=== PATIENT | male | born 1950 | race Caucasian/White ===

== ENCOUNTER 2017-04-08 14:05 | Emergency (ER) | payer MEDICARE, OTHER ==
--- NOTE | 2017-04-08 15:01 | ED Physician Documentation ---
History of Present Illness - Stated complaint Stated Complaint: DIZZY - Chief complaint Chief Complaint: Neuro - History obtained from History obtained from: Patient, Family - History of Present Illness Timing: How many days ago (3) - Additonal information Additional information: 67-year-old male with a remote history of severe traumatic brain injury has a slight limp with left-sided weakness at baseline and 3 days ago this limp became more pronounced. He also feels that he is having some spaciness. He reports that before he went on a trip to [place] to play golf with his friends that he had been very busy at home mowing the lawn and cleaning up and then he went to play golf he played 4 rounds of golf in [place] with his friends he did not do much in the way of drinking alcohol but he did drink lots of fluids. 3 days ago on the return home he got caught in traffic and was quite stressed about catching his plane and when he got home he noted the limping was worse. His noted this as well. He has had some headache and he has had no difficulty with his speech but he has had some difficulty with short-term memory and feeling "spacey " Review of Systems Constitutional: denies: Fever, Chills, Myalgias, Fatigue Eyes: denies: Decreased vision Ears: denies: Ear pain Nose: denies: Rhinorrhea / runny nose, Congestion Throat: denies: Sore throat Cardiac: denies: Chest pain / pressure, Palpitations Respiratory: denies: Dyspnea, Cough GI: reports: Constipation. denies: Abdominal Pain, Nausea, Vomiting, Diarrhea : denies: Dysuria, Frequency Skin: denies: Rash Musculoskeletal: denies: Neck pain, Back pain, Extremity pain Neurologic: reports: Focal weakness (left leg), Headache. denies: Generalized weakness, Numbness, Difficulty speaking, Head injury, LOC PD PAST MEDICAL HISTORY - Present Medications Home Medications: Ambulatory Orders Medication Instructions Recorded Confirmed Aspirin 04/08/17 Tamsulosin [Flomax] 04/08/17 - Allergies Allergies/Adverse Reactions: Allergies Allergy/AdvReac Type Severity Reaction Status Date / Time No Known Drug Allergies Allergy Verified 04/08/17 14:21 PD ED PE NORMAL - Vitals Vital signs reviewed: Yes (hypertension) - General General: Alert and oriented X 3, No acute distress, Well developed/nourished - HEENT HEENT: Atraumatic, PERRL, EOMI - Neck Neck: Supple, no meningeal sign, No bony TTP, No bruit - Cardiac Cardiac: RRR, No murmur - Respiratory Respiratory: No respiratory distress, Clear bilaterally - Abdomen Abdomen: Soft, Non tender - Back Back: No CVA TTP, No spinal TTP - Derm Derm: Normal color, No rash - Extremities Extremities: No deformity, No edema - Neuro Neuro: Alert and oriented X 3, anode worker 2-12 intact, No motor deficit, No sensory deficit, Normal speech - Psych Psych: Normal mood, Normal affect Results - Vitals Vitals: Vital Signs - 24 hr 04/08/17 04/08/17 04/08/17 14:09 16:11 16:44 Temperature 37.0 C Heart Rate 80 69 76 Respiratory 18 20 19 Rate Blood Pressure 162/104 H 122/57 L 145/85 H O2 Saturation 96 98 97 04/08/17 17:27 Temperature Heart Rate 62 Respiratory 18 Rate Blood Pressure 135/87 H O2 Saturation 97 Oxygen O2 Source Room air - EKG (time done) 1457 Rate: Rate (enter#) (76) Rhythm: NSR [place]: LAD Ischemia: Normal ST segments Other comments: Other comments (early transition) Computer interpretation: Agree with computer - Labs Labs: Laboratory Tests 04/08/17 04/08/17 04/08/17 14:30 14:30 14:30 WBC 9.5 RBC 4.88 Hgb 14.6 Hct 44.0 MCV 90.3 MCH 30.0 MCHC 33.3 RDW 14.3 Plt Count 251 MPV 10.2 Neut # 7.3 H Lymph # 1.3 L Brantley # 0.9 Eos # 0.1 Baso # 0.0 Absolute Nucleated RBC 0.00 Nucleated RBCs 0.0 Manual Slide Review Indicated WBC Morphology NORMAL APPEARANCE Platelet Estimate NORMAL (130-450,000) Platelet Morphology 1+ GIANT PLATELETS RBC Morph Micro Appear NORMAL APPEARANCE Sodium 139 Potassium 3.6 Chloride 104 Carbon Dioxide 28 Anion Gap 7.0 BUN 15 Creatinine 1.0 Estimated GFR (MDRD) 74 L Glucose 118 H Calcium 9.5 Total Bilirubin 0.6 AST 27 ALT 26 Alkaline Phosphatase 56 Troponin I < 0.04 Total Protein 7.4 Albumin 4.0 Globulin 3.4 Albumin/Globulin Ratio 1.2 Lipase 25 Urine Color Urine Clarity Urine pH Ur Specific [place] Urine Protein Urine Glucose (UA) Urine Ketones Urine Occult Blood Urine Nitrite Urine Bilirubin Urine Urobilinogen Ur Leukocyte Esterase Urine RBC Urine WBC Urine WBC Clumps Ur Squamous Epith Cells Urine Bacteria Ur Microscopic Review Urine Culture Comments 04/08/17 15:50 WBC RBC Hgb Hct MCV MCH MCHC RDW Plt Count MPV Neut # Lymph # [place] # Eos # Baso # Absolute Nucleated RBC Nucleated RBCs Manual Slide Review WBC Morphology Platelet Estimate Platelet Morphology RBC Morph Micro Appear Sodium Potassium Chloride Carbon Dioxide Anion Gap BUN Creatinine Estimated GFR (MDRD) Glucose Calcium Total Bilirubin AST ALT Alkaline Phosphatase Troponin I Total Protein Albumin Globulin Albumin/Globulin Ratio Lipase Urine Color YELLOW Urine Clarity CLEAR Urine pH 6.0 Ur Specific [place] 1.015 Urine Protein NEGATIVE Urine Glucose (UA) NEGATIVE Urine Ketones NEGATIVE Urine Occult Blood NEGATIVE Urine Nitrite NEGATIVE Urine Bilirubin NEGATIVE Urine Urobilinogen 0.2 (NORMAL) Ur Leukocyte Esterase SMALL H Urine RBC 0-5 Urine WBC 11-25 H Urine WBC Clumps PRESENT Ur Squamous Epith Cells FEW Squamous Urine Bacteria Rare Ur Microscopic Review INDICATED Urine Culture Comments INDICATED - Rads (name of study) CT head without Radiology: Prelim report reviewed (Impression: 1. 2 cm left frontal subdural hematoma.2. Moderate left or right supra internal midline shift without inferior transtentorial herniation or ventricular entrapment.3. Old large vascular insult involving the distal half right middle cerebral artery territory.4. Suspected subcentimeter subdural hygroma left posterior fossa.), EMP read indepedently, See rad report Procedures - IVC sono (time) 1450 Bedside IVC sono: IVC measures (cm) (1.09), IVC collapsed c insp (cm) (complete) , Dehydration PD MEDICAL DECISION MAKING - ED course Complexity details: reviewed results, re-evaluated patient, considered differential, d/w patient, d/w family ED course: 67 y/o male with prior history of TBI with resultant L sided weakness has been stable for years and over the past week he was in [place] with 100+ temps and playing golf with his friends. He subsequently developed stroke like symptoms in the left and he is dragging his left foot more than usual. He really felt he was hydrating adequately and despite this he is found to be dehydrated on interrogation of the IVC. Here in the ED he is give IV saline and a stroke work up is begun. His CT scan is + for a 2cm left subdural hematoma with midline shift. On further history he gives a history of a fall down steps while at [facility] (February 28) with a resultant nasal bridge laceration that required suturing but there was no loss of consciousness. He did not have symptoms further at that time. At [address] [place] Mckeon [place] [facility] and he will accept the patient in transfer and he will go ground. Departure - Departure Disposition: 02 Transfer Acute Care Hosp Clinical Impression: Dehydration Subdural hematoma, post-traumatic Qualifiers: Encounter type: initial encounter Loss of consciousness presence/duration: without LOC Qualified Code(s): S06.5X0A - Traumatic subdural hemorrhage without loss of consciousness, initial encounter Urinary tract infection Qualifiers: Urinary tract infection type: acute cystitis Hematuria presence: without hematuria Qualified Code(s): N30.00 - Acute cystitis without hematuria Condition: Stable
[2017-04-08 15:06] LABS: BASOPHILS % (AUTO) 0.4 %; EOSINOPHILS # (AUTO) 0.1 10^3/uL (0.0-0.7); EOSINOPHILS % (AUTO) 0.6 %; HGB - HEMOGLOBIN 14.6 g/dL (14.0-18.0); LYMPHOCYTES # (AUTO) 1.3 10^3/uL (1.5-3.5); LYMPHOCYTES % (AUTO) 13.5 %; MEAN CORPUSCULAR HGB CONC 33.3 g/dL (32.0-36.0); MEAN CORPUSCULAR VOLUME 90.3 fL (80.0-94.0); MEAN PLATELET VOLUME 10.2 fL (7.4-11.4); MONOCYTES # (AUTO) 0.9 10^3/uL (0.0-1.0); MONOCYTES % (AUTO) 9.1 %; NEUTROPHILS # (AUTO) 7.3 10^3/uL (1.5-6.6); NEUTROPHILS % (AUTO) 76.4 %; RED BLOOD COUNT 4.88 10^6/uL (4.70-6.10); RED CELL DISTRIBUTION WIDTH 14.3 % (12.0-15.0); UNCORRECTED WHITE BLOOD COUNT 9.5 x10^3/uL; WHITE BLOOD COUNT 9.5 x10^3/uL (4.8-10.8)
[2017-04-08] MEDS: SODIUM CHLORIDE 0.9% 1,000 ML IV ONE (15:08)
[2017-04-08 15:09] LABS: ALBUMIN/GLOBULIN RATIO 1.2 (1.0-2.2); BILIRUBIN,TOTAL 0.6 mg/dL (0.2-1.0); CALCIUM 9.5 mg/dL (8.5-10.3); POTASSIUM 3.6 mmol/L (3.5-5.0); TOTAL PROTEIN 7.4 g/dL (6.7-8.2)
[2017-04-08 15:30] LABS: PLATELET ESTIMATE, MANUAL NORMAL (130-450,000) (NORMAL); PLATELET MORPHOLOGY 1+ GIANT PLATELETS (NORMAL); WBC MORPHOLOGY (MULTIPLE) NORMAL APPEARANCE (NORMAL)
--- NOTE | 2017-04-08 15:55 | CT Preliminary Report ---
Exam: CT Head W/O IMPRESSION: 1. 2 cm left frontal sub-dural hematoma. 2. Moderate left or right supra internal midline shift without inferior transtentorial herniation nor ventricular entrapment. 3. Old large vascular insult involving the distal half right middle survey artery territory. 4. Suspect subcentimeter subdural hygroma left posterior fossa. RADIA The above critical findings were discussed with by Dr. Hailee Zamora at 15:54 hrs on 04/08/17. SITE ID: [id number]
[2017-04-08 16:03] LABS: BILIRUBIN,URINE NEGATIVE (NEGATIVE)
[2017-04-08 16:04] LABS: UA w/ MICROSCOPIC CHARGE YES
[2017-04-08 16:17] LABS: UR CULTURE IF IND INDICATED
--- NOTE | 2017-04-08 16:19 | CT Report ---
EXAM: CT HEAD EXAM DATE: 04/08/2017 03:32 PM. CLINICAL HISTORY: Remote traumatic brain injury. Left-sided weakness for the last several days. COMPARISON: None. TECHNIQUE: Multiaxial CT images were obtained from the foramen magnum to the vertex. IV contrast: Non e. Reformats: Coronal. In accordance with CT protocol optimization, one or more of the following dose reduction techniques w ere utilized for this exam: automated exposure control, adjustment of mA and/or KV based on patient s ize, or use of iterative reconstructive technique. FINDINGS: Parenchyma: Large area of volume loss and gliosis involving the posterior half right middle cerebral artery territory, anterior superior right temporal lobe, posterior half of the right frontal lobe, an d to a lesser extent the right parietal lobe. No intra-axial blood products. Extraaxial Spaces: 2.0 cm left convexity subdural hematoma, epicenter over the mid lateral aspect lef t frontal lobe causing marked mass effect on the subjacent cerebral hemisphere. Effacement of the sul ci left frontal lobe. Ventricles: 9 mm left to right supratentorial midline shift. Mild narrowing right ambient cistern. No intraventricular blood products nor entrapment of either lateral ventricle. Fourth ventricle antonio l caliber and midline. Uniform 8 mm CSF density lateral aspect left cerebellar hemisphere. Cervicomedullary junction is normal position. Sinuses: Imaged paranasal sinuses, orbits, and mastoids show no significant abnormality. Bones: No evidence of fracture or calvarial defect. Other: Diffuse chronic microangiopathic white matter changes are evident. IMPRESSION: 1. A 2 cm left frontal sub-dural hematoma. 2. Moderate left to right supratentorial midline shift without inferior transtentorial herniation nor ventricular entrapment. 3. Old large vascular insult involving the distal half right middle cerebral artery territory. 4. Suspect subcentimeter subdural hygroma left posterior fossa. RADIA The above critical findings were discussed with Dr. Ortiz by Dr. Hailee Zamora at 15:54 hrs on 04/08/17. Referring Provider Line: [phone] SITE ID: [id number]
[2017-04-08 17:28] VITALS: BP 135/87
== END 2017-04-08 18:17 | disposition short-term general hospital (02) ==
LOC: ED 14:05
DX: E86.0 Dehydration (principal); S06.5X0A Traumatic subdural hemorrhage without loss of consciousness, initial encounter; N30.00 Acute cystitis without hematuria; Z79.82 Long term (current) use of aspirin; X58.XXXA Exposure to other specified factors, initial encounter
CPT/HCPCS: 36415; 70450; 80053; 81001; 81003; 83690; 84484; 85025; 87086; 93005; 96360; 96361; 99284; 99285

== ENCOUNTER 2017-04-08 17:37 | Outpatient (CLI) | payer MEDICARE, OTHER | END 2017-04-08 17:38 | disposition home or self-care (01) | LOC: EMS 17:37 | PROVIDERS: ATTEND Surgery | DX: S06.5X0A Traumatic subdural hemorrhage without loss of consciousness, initial encounter (principal) | CPT/HCPCS: A0425; A0426 ==

== ENCOUNTER 2018-03-08 07:51 | Day surgery (SDC) | payer MEDICARE, OTHER ==
[2018-03-08] MEDS ORDERED: LACTATED RINGERS 1,000 ML IV ONE ×2 (08:35→08:42)
[2018-03-08 09:58] VITALS: BP 117/72
== END 2018-03-08 07:52 | disposition home or self-care (01) ==
LOC: SDS 07:51
PROVIDERS: ATTEND Surgery
PROC: 0DJD8ZZ Inspection of Lower Intestinal Tract, Via Natural or Artificial Opening Endoscopic (ICD-10-PCS; principal; 2018-03-08 09:00)
DX: Z12.11 Encounter for screening for malignant neoplasm of colon (principal); K64.8 Other hemorrhoids; Z87.820 Personal history of traumatic brain injury; G81.94 Hemiplegia, unspecified affecting left nondominant side
CPT/HCPCS: G0121; J7120

== ENCOUNTER 2018-03-25 09:32 | Outpatient (CLI) | payer MEDICARE, OTHER ==
[2018-03-25 12:33] LABS: BASOPHILS % (AUTO) 0.4 %; EOSINOPHILS # (AUTO) 0.1 10^3/uL (0.0-0.7); EOSINOPHILS % (AUTO) 1.7 %; LYMPHOCYTES # (AUTO) 1.3 10^3/uL (1.5-3.5); LYMPHOCYTES % (AUTO) 16.3 %; MEAN CORPUSCULAR HEMOGLOBIN 30.3 pg (27.0-31.0); MEAN CORPUSCULAR HGB CONC 33.2 g/dL (32.0-36.0); MEAN CORPUSCULAR VOLUME 91.3 fL (80.0-94.0); MEAN PLATELET VOLUME 10.6 fL (7.4-11.4); MONOCYTES # (AUTO) 0.9 10^3/uL (0.0-1.0); MONOCYTES % (AUTO) 11.6 %; NEUTROPHILS # (AUTO) 5.5 10^3/uL (1.5-6.6); PLT - PLATELET COUNT 274 10^3/uL (130-450); RED BLOOD COUNT 4.95 10^6/uL (4.70-6.10); RED CELL DISTRIBUTION WIDTH 14.6 % (12.0-15.0); WHITE BLOOD COUNT 7.8 x10^3/uL (4.8-10.8)
[2018-03-25 12:50] LABS: PLATELET ESTIMATE, MANUAL NORMAL (130-450,000) (NORMAL); PLATELET MORPHOLOGY 1+ GIANT PLATELETS (NORMAL); RBC MORPHOLOGY (MULTIPLE) NORMAL APPEARANCE (NORMAL)
[2018-03-25 13:40] LABS: ALBUMIN 3.9 g/dL (3.2-5.5); ALBUMIN/GLOBULIN RATIO 1.2 (1.0-2.2); BILIRUBIN,TOTAL 0.9 mg/dL (0.2-1.0); CALCIUM 9.3 mg/dL (8.5-10.3); CREATININE 0.9 mg/dL (0.6-1.2); TOTAL PROTEIN 7.1 g/dL (6.7-8.2)
== END 2018-03-25 09:33 ==
LOC: LAB.WCP 09:32
PROVIDERS: ATTEND Family Medicine
DX: R22.1 Localized swelling, mass and lump, neck (principal)
CPT/HCPCS: 36415; 80053; 85025

== ENCOUNTER 2018-04-05 15:06 | Outpatient (CLI) | payer MEDICARE, OTHER ==
[~2018-04-05 15:06] MED LIST: IOPAMIDOL-300 100 ML VIAL ONE
[2018-04-05] MEDS ORDERED: IOPAMIDOL-300 100 ML VIAL IVP ONE (15:59)
--- NOTE | 2018-04-06 08:09 | CT Report ---
Procedure Date: 04/05/2018 Accession Number: [id number] / [id number] Procedure: CT - Neck Soft Tissue W/ CPT Code: FULL RESULT: EXAM: CT SOFT TISSUE NECK WITH CONTRAST. EXAM DATE: 04/05/2018 03:41 PM. HISTORY: 68-year-old male, submandibular tissue swelling right jaw/neck COMPARISONS: HEAD W/O 04/08/2017. TECHNIQUE: Routine soft tissue neck CT protocol. Reconstructions: Coronal and sagittal. IV contrast: ISOVUE 300 80mL. In accordance with CT protocol optimization, one or more of the following dose reduction techniques were utilized for this exam: automated exposure control, adjustment of mA and/or KV based on patient size, or use of iterative reconstructive technique. FINDINGS: Visualized Intracranial Contents: Stable chronic subdural hygroma left lateral posterior fossa measuring 1.3 cm (series 3 image 17). Orbits: Symmetric and unremarkable. Sinuses: Visualized paranasal sinuses and mastoid air cells are clear. Oral cavity: The visualized oral cavity is unremarkable. The floor of the mouth is symmetric. Pharynx : Pharyngeal mucosa is unremarkable. The infratemporal fossa, parapharyngeal spaces, and retropharyngeal space are unremarkable. The base of the tongue is symmetric and unremarkable. The airway is patent. Larynx: Larynx and supraglottic airway are patent without mass lesion. Vocal cords are symmetric. The visualized trachea is unremarkable. Parotid and Submandibular Glands: Symmetric and unremarkable. Lymph Nodes: No enlarged lymph nodes are identified in the cervical, supraclavicular, and visualized superior mediastinal regions. Soft tissues: Soft tissues are unremarkable. No mass lesion or abnormal enhancement. Vascular Structures: Unremarkable. Thyroid Gland: An 8 mm hypodense lesion superior right thyroid lobe (series 5 image 41). Given subcentimeter size, no further follow-up is suggested. Lung: The visualized lung apices are clear. Bones: No evidence of acute fracture or malalignment. There are mild degenerative changes. Other: None. IMPRESSION: 1. No swelling of the right submandibular gland or the adjacent tissues (for example series 3 image 71). No evidence of soft tissue mass, abscess, adenopathy, or definite mucosal abnormality. 2. Stable chronic subdural hygroma left lateral posterior fossa measuring 1.3 cm (series 3 image 17). 3. An 8 mm hypodense lesion superior right thyroid lobe (series 5 image 41). Given subcentimeter size, no further follow-up is suggested. RADIA
== END 2018-04-05 15:07 | disposition home or self-care (01) ==
LOC: DI 15:06
PROVIDERS: ATTEND Family Medicine
DX: R22.1 Localized swelling, mass and lump, neck (principal); G96.0 Cerebrospinal fluid leak; E07.9 Disorder of thyroid, unspecified
CPT/HCPCS: 70491; Q9967

== ENCOUNTER 2019-04-25 08:00 | Outpatient (CLI) | payer MEDICARE, OTHER ==
[2019-04-25 12:19] LABS: BASOPHILS % (AUTO) 0.6 %; EOSINOPHILS # (AUTO) 0.2 10^3/uL (0.0-0.7); EOSINOPHILS % (AUTO) 2.7 %; HGB - HEMOGLOBIN 14.6 g/dL (14.0-18.0); LYMPHOCYTES # (AUTO) 1.4 10^3/uL (1.5-3.5); LYMPHOCYTES % (AUTO) 19.5 %; MEAN CORPUSCULAR HEMOGLOBIN 29.7 pg (27.0-31.0); MEAN CORPUSCULAR HGB CONC 31.6 g/dL (32.0-36.0); MEAN CORPUSCULAR VOLUME 93.9 fL (80.0-94.0); MEAN PLATELET VOLUME 12.3 fL (7.4-11.4); MONOCYTES # (AUTO) 0.9 10^3/uL (0.0-1.0); MONOCYTES % (AUTO) 12.7 %; NEUTROPHILS # (AUTO) 4.6 10^3/uL (1.5-6.6); NEUTROPHILS % (AUTO) 64.2 %; PLT - PLATELET COUNT 280 10^3/uL (130-450); RED BLOOD COUNT 4.92 10^6/uL (4.70-6.10); RED CELL DISTRIBUTION WIDTH 14.8 % (12.0-15.0); WHITE BLOOD COUNT 7.1 x10^3/uL (4.8-10.8)
[2019-04-25 12:33] LABS: ALBUMIN 3.9 g/dL (3.2-5.5); ALBUMIN/GLOBULIN RATIO 1.2 (1.0-2.2); ALKALINE PHOSPHATASE 58 IU/L (42-121); ALT ALANINE AMINOTRANSFERASE 22 IU/L (10-60); AST ASPARTATE AMINOTRANSFERASE 22 IU/L (10-42); BILIRUBIN,TOTAL 0.7 mg/dL (0.2-1.0); BUN - BLOOD UREA NITROGEN 14 mg/dL (6-20); CALCIUM 9.4 mg/dL (8.5-10.3); CARBON DIOXIDE - CO2 29 mmol/L (21-32); CHLORIDE 105 mmol/L (101-111); CHOL/HDL RATIO 3.9 (<5.0); CHOLESTEROL 201 mg/dL; CREATININE 0.8 mg/dL (0.6-1.2); GFR - MDRD 96 (>89); GLUCOSE 102 mg/dL (70-100); HDL CHOLESTEROL 52 mg/dL; LDL CHOLESTEROL,CALCULATED 129 mg/dL; LDL/HDL RATIO 2.5 (<3.6); SODIUM 141 mmol/L (135-145); TOTAL PROTEIN 7.1 g/dL (6.7-8.2); VLDL CHOLESTEROL 20 mg/dL
== END 2019-04-25 23:59 | disposition home or self-care (01) ==
LOC: LAB.WCP 08:00
PROVIDERS: ATTEND Family Medicine
DX: E78.5 Hyperlipidemia, unspecified (principal); N40.0 Benign prostatic hyperplasia without lower urinary tract symptoms; J30.9 Allergic rhinitis, unspecified; B02.9 Zoster without complications
CPT/HCPCS: 36415; 80053; 80061; 83721; 84443; 85025

== ENCOUNTER → 2019-04-29 | Outpatient (CLI) | payer MEDICARE, OTHER | LOC: LAB.WCP 08:00 | PROVIDERS: ATTEND Family Medicine | DX: Z12.5 Encounter for screening for malignant neoplasm of prostate (principal) | CPT/HCPCS: 36415; G0103; 84153 ==

== ENCOUNTER 2020-04-18 08:01 | Outpatient (CLI) | payer MEDICARE, OTHER ==
[2020-04-18 12:09] LABS: BASOPHILS % (AUTO) 0.5 %; EOSINOPHILS # (AUTO) 0.2 10^3/uL (0.0-0.7); EOSINOPHILS % (AUTO) 2.5 %; LYMPHOCYTES # (AUTO) 1.4 10^3/uL (1.5-3.5); LYMPHOCYTES % (AUTO) 17.1 %; MEAN CORPUSCULAR HEMOGLOBIN 29.9 pg (27.0-31.0); MEAN CORPUSCULAR HGB CONC 31.5 g/dL (32.0-36.0); MEAN PLATELET VOLUME 12.4 fL (7.4-11.4); MONOCYTES # (AUTO) 0.8 10^3/uL (0.0-1.0); MONOCYTES % (AUTO) 9.8 %; NEUTROPHILS # (AUTO) 5.6 10^3/uL (1.5-6.6); NEUTROPHILS % (AUTO) 69.8 %; PLT - PLATELET COUNT 307 10^3/uL (130-450); RED BLOOD COUNT 5.01 10^6/uL (4.70-6.10); RED CELL DISTRIBUTION WIDTH 14.3 % (12.0-15.0)
[2020-04-18 12:21] LABS: PSA TOTAL 3.67 ng/mL (0.000-2.000)
[2020-04-18 12:22] LABS: PSA FREE 0.5 ng/mL (0.16-2.81)
[2020-04-18 13:06] LABS: ALBUMIN 3.9 g/dL (3.2-5.5); ALBUMIN/GLOBULIN RATIO 1.3 (1.0-2.2); ALKALINE PHOSPHATASE 67 IU/L (42-121); ALT ALANINE AMINOTRANSFERASE 23 IU/L (10-60); AST ASPARTATE AMINOTRANSFERASE 23 IU/L (10-42); BILIRUBIN,TOTAL 0.8 mg/dL (0.2-1.0); BUN - BLOOD UREA NITROGEN 18 mg/dL (6-20); CALCIUM 9.1 mg/dL (8.5-10.3); CARBON DIOXIDE - CO2 29 mmol/L (21-32); CHLORIDE 105 mmol/L (101-111); CHOL/HDL RATIO 4.3 (<5.0); CHOLESTEROL 228 mg/dL; CREATININE 0.9 mg/dL (0.6-1.2); GLUCOSE 103 mg/dL (70-100); HDL CHOLESTEROL 53 mg/dL; LDL CHOLESTEROL,CALCULATED 160 mg/dL; SODIUM 137 mmol/L (135-145); VLDL CHOLESTEROL 15 mg/dL
== END 2020-04-18 23:59 | disposition home or self-care (01) ==
LOC: LAB.WCP 08:01
PROVIDERS: ATTEND Family Medicine
DX: E78.5 Hyperlipidemia, unspecified (principal); R97.20 Elevated prostate specific antigen [PSA]
CPT/HCPCS: 36415; 80053; 80061; 83721; 84153; 84154; 84443; 85025

== ENCOUNTER 2020-05-10 14:42 | Outpatient (CLI) | payer MEDICARE, OTHER ==
[2020-05-10 18:34] LABS: ALBUMIN 3.8 g/dL (3.2-5.5); ALBUMIN/GLOBULIN RATIO 1.2 (1.0-2.2); BILIRUBIN,TOTAL 0.7 mg/dL (0.2-1.0); CALCIUM 9.5 mg/dL (8.5-10.3); CREATININE 1.2 mg/dL (0.6-1.2); TOTAL PROTEIN 7.1 g/dL (6.7-8.2)
[2020-05-10 18:35] LABS: BASOPHILS # (AUTO) 0.1 10^3/uL (0.0-0.1); BASOPHILS % (AUTO) 0.5 %; EOSINOPHILS # (AUTO) 0.1 10^3/uL (0.0-0.7); EOSINOPHILS % (AUTO) 0.7 %; HGB - HEMOGLOBIN 14.8 g/dL (14.0-18.0); LYMPHOCYTES # (AUTO) 1.3 10^3/uL (1.5-3.5); LYMPHOCYTES % (AUTO) 11.8 %; MEAN CORPUSCULAR HEMOGLOBIN 30.5 pg (27.0-31.0); MEAN CORPUSCULAR VOLUME 92.4 fL (80.0-94.0); MEAN PLATELET VOLUME 12.6 fL (7.4-11.4); MONOCYTES % (AUTO) 9.4 %; NEUTROPHILS # (AUTO) 8.4 10^3/uL (1.5-6.6); NEUTROPHILS % (AUTO) 77.1 %; PLT - PLATELET COUNT 311 10^3/uL (130-450); RED BLOOD COUNT 4.86 10^6/uL (4.70-6.10); RED CELL DISTRIBUTION WIDTH 14.2 % (12.0-15.0); WHITE BLOOD COUNT 10.9 x10^3/uL (4.8-10.8)
== END 2020-05-10 23:59 | disposition home or self-care (01) ==
LOC: LAB.WCP 14:42
PROVIDERS: ATTEND Family Medicine
DX: R10.12 Left upper quadrant pain (principal)
CPT/HCPCS: 36415; 80053; 85025

== ENCOUNTER 2020-05-15 10:46 | Outpatient (CLI) | payer MEDICARE, OTHER ==
[2020-05-15] MEDS ORDERED: IOVERSOL 320 50 ML VIAL ONE (11:20)
[2020-05-15] MEDS ORDERED: IOVERSOL 320 100 ML VIAL IVP ONE ×2 (11:20→13:02)
[2020-05-15] MEDS ORDERED: IOVERSOL 320 50 ML VIAL PO ONE (13:01)
--- NOTE | 2020-05-15 17:03 | CT Report ---
PROCEDURE: Abdomen/Pelvis W INDICATIONS: LUQ ABD PAIN CONTRAST: IV CONTRAST: Optiray 320 ml: 100 PO CONTRAST: Optiray 320 ml50 TECHNIQUE: After the administration of nonionic contrast, 5 mm thick sections acquired from the diaphragms to th e symphysis. 5 mm thick coronal and sagittal reformats were acquired. For radiation dose reduction, the following was used: automated exposure control, adjustment of mA and/or kV according to patient size. COMPARISON: None. FINDINGS: Image quality: Excellent. ABDOMEN: Lung bases: Lung bases are clear but there is herniation of upper abdominal fat through a relatively small defect in the posterior left hemidiaphragm, seen on axial imaging series 3 image 23 and with c rowding of the vessels extending into this fat protruding through the 2.5 cm diaphragmatic defect see n on coronal imaging series 6, image 42. Distortion of the involved vessels does not appear present. Edema within the herniated fat is minimal. No pleural effusion is associated. The spleen remains bene ath the diaphragm, but in close proximity to the defect. Fat herniated into the posterior left pleura l space measures up to 5.3 x 11.6 cm.. Heart size is normal. Solid organs: Liver and spleen are normal in size and enhancement. Gallbladder appears normal Bili yolanda system is non dilated. Pancreas enhances normally. No adrenal nodules. Kidneys demonstrate nor mal size and enhancement, without hydronephrosis. Peritoneum and bowel: Bowel loops demonstrate normal wall thickness and caliber. No free fluid or a ir. Nodes and vessels: No retroperitoneal or mesenteric adenopathy by size criteria. Aorta and inferior vena cava are normal in size. Miscellaneous: No ventral hernias. PELVIS: Genitourinary: Bladder wall thickness is normal. Miscellaneous: No inguinal hernias or adenopathy. Bones: No suspicious bony lesions. No vertebral body compression fractures. IMPRESSION: 1. There is significant upper abdominal fat that has herniated through a relatively narrow diaphragma tic defect at the posterior left hemidiaphragm, with fat herniating into the posterior left pleural s pace measuring up to 5.3 x 11.6 cm. The clustering of the vessels extending into this area does not s how evidence of torsion of this herniation but the defect measures only approximately 2.[address] and the adjacent spleen is within close proximity to this defect. Surgical consultation appears w arranted. Definite strangulation or incarceration of this herniation is not currently suspected. No a dditional source of left upper quadrant pain is found. 2. The remainder of the examination appears normal for age. Reviewed by: Pablo Morales MD on 05/15/2020 5:01 PM PDT Approved by: Pablo Morales MD on 05/15/2020 5:01 PM PDT Station ID: [id number]
== END 2020-05-15 10:47 | disposition home or self-care (01) ==
LOC: DI 10:46
PROVIDERS: ATTEND Family Medicine
DX: R10.12 Left upper quadrant pain (principal); K46.9 Unspecified abdominal hernia without obstruction or gangrene
CPT/HCPCS: 74177; Q9967

== ENCOUNTER 2021-03-09 11:17 | Outpatient (CLI) | payer MEDICARE, OTHER | END 2021-03-09 11:18 | disposition EMS.NT | LOC: EMS 11:17 | DX: R55 Syncope and collapse (principal) ==

== ENCOUNTER 2021-04-19 14:02 | Outpatient (CLI) | payer MEDICARE, OTHER ==
[2021-04-19 15:14] LABS: ALBUMIN 3.9 g/dL (3.2-5.5); ALBUMIN/GLOBULIN RATIO 1.1 (1.0-2.2); BILIRUBIN,TOTAL 0.8 mg/dL (0.2-1.0); CALCIUM 9.1 mg/dL (8.5-10.3); POTASSIUM 3.8 mmol/L (3.5-5.0); TOTAL PROTEIN 7.3 g/dL (6.7-8.2)
--- NOTE | 2021-04-19 17:06 | CT Report ---
PROCEDURE: ABDOMEN W INDICATIONS: DIAPHRAGMATIC HERNIA CONTRAST: IV CONTRAST: Isovue 300 ml: 100 PO CONTRAST: Optiray 320 ml50 TECHNIQUE: After the administration of oral and intravenous contrast, 5 mm thick sections acquired from the diap hragms to the iliac crests. 5 mm thick coronal and sagittal reformats were acquired. For radiation dose reduction, the following was used: automated exposure control, adjustment of mA and/or kV accor ding to patient size. COMPARISON: FINDINGS: Image quality: Excellent. Lung bases: Lung bases are clear except for mild left lung base atelectasis associated with a family advocate ior lateral diaphragmatic hernia on the left allowing fatty soft tissues to extend through a relative ly small diaphragmatic defect measuring 2.2 x 2.4 cm and to extend into the posterior left pleural sp spencer. No visceral structure extends through this study, and there is no evidence of incarceration or s trangulation of the herniated fat.. Heart size is normal. Solid organs: Liver and spleen are normal in size and enhancement. Gallbladder appears normal Bili yolanda system is non dilated. Pancreas enhances normally. No adrenal nodules. Kidneys are normal in s ize, without hydronephrosis. Peritoneum and bowel: Contrast enhanced bowel loops appear normal in caliber. No free fluid or air. Nodes and vessels: No retroperitoneal or mesenteric adenopathy by size criteria. Aorta and inferior vena cava are normal in size. Bones: No suspicious bony lesions. No vertebral body compression fractures. Miscellaneous: No ventral hernias. IMPRESSION: There is a small defect within the left diaphragm posteriorly, laterally, seen on axial imaging serie s 3 image 20, and on sagittal reformatting should imaging series 7 image 16. The diameter of this str ucture is between 2.4 and 2.2 cm which is relatively small and could represent a potential risk for f uture incarceration or strangulation of the herniated left upper quadrant posterior fat that extends into the left posterior pleural space. Surgical consultation should be obtained if this has not yet b een performed. Reviewed by: Pablo Morales MD on 04/19/2021 5:05 PM PDT Approved by: Pablo Morales MD on 04/19/2021 5:05 PM PDT Station ID: [id number]
[2021-04-19] MEDS ORDERED: IOPAMIDOL-300 100 ML VIAL IVP ONE (17:32)
[2021-04-19] MEDS ORDERED: IOVERSOL 320 50 ML VIAL PO ONE (17:33)
== END 2021-04-19 14:03 | disposition home or self-care (01) ==
LOC: LAB 14:02
PROVIDERS: ATTEND Surgery
DX: I10 Essential (primary) hypertension (principal); E78.5 Hyperlipidemia, unspecified; K44.9 Diaphragmatic hernia without obstruction or gangrene
CPT/HCPCS: 36415; 74160; 80053; Q9967

== ENCOUNTER 2021-05-06 12:02 | Outpatient (CLI) | payer MEDICARE, OTHER ==
--- NOTE | 2021-05-06 16:32 | XRAY Report ---
PROCEDURE: Knee 3 View RT INDICATIONS: R KNEE PX TECHNIQUE: 3 views of the right knee(s) were acquired. COMPARISON: None. FINDINGS: Bones: No acute fractures or dislocations. Moderate tricompartment periarticular osteophyte formatio n. Chronic fragmentation of the anterior tibial tubercle. No suspicious bony lesions. Soft tissues: Moderate knee joint effusion. No suspicious soft tissue calcifications. Patellar tend on appears thickened. IMPRESSION: 1. Osteoarthritis. 2. Remote [place] disease. 3. Findings suggestive of patellar tendinopathy. Further assessment with MRI is recommended. Reviewed by: Arjun Silva MD on 05/06/2021 4:31 PM PDT Approved by: Arjun Silva MD on 05/06/2021 4:31 PM PDT Station ID: [id number]
== END 2021-05-06 12:03 ==
LOC: DI.N 12:02
PROVIDERS: ATTEND Nurse Practitioner
DX: M25.562 Pain in left knee (principal); M17.11 Unilateral primary osteoarthritis, right knee; M92.521 Juvenile osteochondrosis of tibia tubercle, right leg; M25.462 Effusion, left knee

== ENCOUNTER 2024-02-05 10:20 | Outpatient (CLI) | payer MEDICARE, OTHER ==
--- NOTE | 2024-02-05 17:42 | XRAY Report ---
PROCEDURE: Femur 2+V LT INDICATIONS: PAIN IN LEFT THIGH TECHNIQUE: 2 views of the femur were acquired. COMPARISON: CT of abdomen and pelvis dated 05/15/2020. FINDINGS: Bones: No fractures or dislocations. Mild to moderate left hip and left knee joint osteoarthritic c hanges are seen. No suspicious bony lesions. Soft tissues: No suspicious soft tissue calcifications or masses. IMPRESSION: No left femoral fracture or dislocation. No gross soft tissue abnormalities. Left hip and left knee j oint osteoarthritis. Reviewed by: Conner Daniel MD on 02/05/2024 5:40 PM PDT Approved by: Conner Daniel MD on 02/05/2024 5:40 PM PDT Station ID: [id number]
== END 2024-02-05 15:24 | disposition home or self-care (01) ==
LOC: DI.N 10:20
PROVIDERS: ATTEND Physician Assistant Medical
DX: M16.12 Unilateral primary osteoarthritis, left hip (principal); M17.12 Unilateral primary osteoarthritis, left knee

== ENCOUNTER 2024-02-09 11:45 | Emergency (ER) | payer MEDICARE, OTHER ==
--- NOTE | 2024-02-09 12:22 | ED Physician Documentation ---
PD HPI LOWER EXT INJURY - Stated complaint Stated Complaint: LT LEG PX,GLF - Chief complaint Chief Complaint: Trauma Ext - History obtained from History obtained from: Patient - Additional information Additional information: 73-year-old gentleman presents with . He has a history of very remote stroke 40+ years ago with left-sided deficits. At his baseline he walks with a limp and uses a cane at night but is generally functional. About 4 days ago early in the morning he fell while going to the bathroom and landed on his butt. There were no other injuries. Since then he has had progressive pain and difficulty walking. He was seen in the urgent care the next day and had negative femur x-rays. He says the pain is most severe in the left buttock "like someone is stabbing me." PD PAST MEDICAL HISTORY - Past Medical History Past Medical History: Yes Cardiovascular: Hypertension, High cholesterol Respiratory: None Neuro: CVA, Head injury Endocrine/Autoimmune: None GI: GERD : Benign prostate hypertrophy HEENT: None, Other Psych: None Musculoskeletal: None Derm: None - Past Surgical History Past Surgical History: Yes Ortho: Knee replacement Neuro: Craniotomy HEENT: Tonsil/Adenoidectomy - Present Medications Home Medications: Ambulatory Orders Medication Instructions Recorded Confirmed Diclofenac Sodium Dr [Voltaren] 75 mg PO BIDWM 02/09/24 02/09/24 Gabapentin [Neurontin] 1 - 2 tab PO TID #60 cap 02/09/24 Gabapentin [Neurontin] 600 mg PO HS 02/09/24 02/09/24 Lisinopril [Zestril] 40 mg ORAL DAILY 02/09/24 02/09/24 Rosuvastatin Calcium 10 mg PO DAILY 02/09/24 02/09/24 Tizanidine HCl 2 mg PO Q8HR PRN 02/09/24 02/09/24 - Allergies Allergies/Adverse Reactions: Allergies Allergy/AdvReac Type Severity Reaction Status Date / Time No Known Drug Allergies Allergy Verified 02/09/24 11:57 - Social History Does the pt smoke?: No Smoking Status: Never smoker Does the pt drink ETOH?: Yes ETOH Use: Wine Does the pt have substance abuse?: No - Immunizations Immunizations are current?: Yes - POLST Patient has POLST: No PD ED PE NORMAL - Vitals Vital signs reviewed: Yes - General General: Alert and oriented X 3 - Back Back: No CVA TTP, No spinal TTP - Extremities Extremities: Other (He has significant pain with walking but is comfortable at rest. I am not able to recreate his pain by palpation of the hip, rotation of the hip, palpation of the spine, or buttock.) - Neuro Neuro: Alert and oriented X 3 - Psych Psych: Normal mood, Normal affect Results - Vitals Vitals: Vital Signs - 24 hr 02/09/24 11:57 Temperature 36.8 C Heart Rate 59 L Respiratory 18 Rate Blood Pressure 148/77 H O2 Saturation 97 Oxygen O2 Source Room air - Labs Labs: Laboratory Tests 02/09/24 02/09/24 12:30 12:30 WBC 11.9 H RBC 4.61 L Hgb 14.2 Hct 43.3 MCV 93.9 MCH 30.8 MCHC 32.8 RDW 14.0 Plt Count 293 MPV 11.2 Neut # (Auto) Not Reportable Lymph # (Auto) Not Reportable Centre # (Auto) Not Reportable Eos # (Auto) Not Reportable Baso # (Auto) Not Reportable Absolute Nucleated RBC Not Reportable Total Counted 100 Band Neuts % (Manual) 2 Abnorm Lymph % (Manual) 0 Nucleated RBC % Not Reportable Neutrophils # (Manual) 9.2 H Lymphocytes # (Manual) 1.3 L Monocytes # (Manual) 1.3 H Eosinophils # (Manual) 0.1 Basophils # (Manual) 0.0 Differential Comment MANUAL DIFFERENTIAL Platelet Estimate NORMAL (130-450,000) Platelet Morphology NORMAL APPEARANCE RBC Morph Micro Appear NORMAL APPEARANCE Sodium 138 Potassium 4.1 Chloride 105 Carbon Dioxide 28 Anion Gap 5.0 L BUN 20 Creatinine 0.9 Estimated GFR (MDRD) 82 L Glucose 96 Calcium 9.8 PD Medical Decision Making - ED course ED course: He presents with worsening pain after a buttock injury. Clinically not consistent with hip fracture. A CT was done basically showing bruising in that area. He declined any pain medication here and did not want any narcotics fearing constipation but was amenable to an increase in his gabapentin which she only takes at night up to 3 times a day. Departure - Departure Disposition: 01 Home, Self Care Clinical Impression: Contusion of left buttock Condition: Good Record reviewed to determine appropriate education?: Yes Instructions: ED Contusion Soft Tissue Prescriptions: Gabapentin [Neurontin] 1 - 2 tab PO TID #60 cap Comments: You are seen today for an injury to your left buttock from a fall. The CAT scan read is below but there were no serious injuries. I sent the prescription for extra gabapentin to the [facility] in [place]. As discussed you can take it up to 3 times a day as needed for the pain. Heat and gentle stretching would be good and it is okay to walk and bear weight as tolerated. Call your doctor to arrange a follow-up appointment, make the next available appointment. In the interim, return anytime if worse or if new symptoms develop. EXAM: [id number] CT/PELW ([id number]) PROCEDURE: Pelvis W INDICATIONS: hip/buttock inj CONTRAST: Omni 300 100ml TECHNIQUE: After the administration of intravenous contrast, a CT scan of the pelvis was performed. Images were recorded and evaluated at appropriate window settings. Reformats: axial MIP of the chest, c oronal and sagittal. For radiation dose reduction, the following was used: automated exposure control, adjustment of mA and/or kV according to patient size. COMPARISON: 05/15/2020 FINDINGS: Image quality: Mild motion artifact Lower abdomen: No evidence of small bowel obstruction. No pathologic ascites in the lower abdomen. Bladder: Unremarkable Reproductive organs: Enlarged prostate, with heterogeneous enhancement, not well assessed on this study, consider PSA correlation if needed Rectum: No significant inflammatory changes were perirectal drainable fluid collection Vessels and lymph nodes: No aneurysmal vessel or pathologic lymph nodes identified. Pelvic wall: Fat-containing right greater left inguinal hernias. Mild edema in the subcutaneous tissues behind the lumbar spine and sacrum. No drainable fluid collection. Mild edema also seen in the gluteal folds. Small hydroceles Bones: No acute or suspicious osseous finding. No displaced fracture is seen. IMPRESSION: Mild scattered edema in the region of the gluteal folds and tissues behind the sacrum and lower lumbar spine. No drainable fluid collection. If there is high concern for further derangement, consider MRI evaluation, preferably with a BB marker focused at the area of highest concern. Forms: PCP List
[2024-02-09 12:36] LABS: BASOPHILS % (AUTO) 0.3 %; HCT - HEMATOCRIT 43.3 % (42.0-52.0); HGB - HEMOGLOBIN 14.2 g/dL (14.0-18.0); LYMPHOCYTES % (AUTO) 11.9 %; MEAN CORPUSCULAR HEMOGLOBIN 30.8 pg (27.0-31.0); MEAN CORPUSCULAR HGB CONC 32.8 g/dL (32.0-36.0); MEAN CORPUSCULAR VOLUME 93.9 fL (80.0-94.0); MEAN PLATELET VOLUME 11.2 fL (7.4-11.4); MONOCYTES % (AUTO) 10.4 %; NEUTROPHILS % (AUTO) 76.1 %; PLT - PLATELET COUNT 293 10^3/uL (130-450); RED BLOOD COUNT 4.61 10^6/uL (4.70-6.10); WHITE BLOOD COUNT 11.9 x10^3/uL (4.8-10.8)
[2024-02-09 12:39] LABS: ABNORMAL LYMPHS % (MANUAL) 0 %
[2024-02-09 13:01] LABS: CALCIUM 9.8 mg/dL (8.5-10.3); CREATININE 0.9 mg/dL (0.6-1.3); POTASSIUM 4.1 mmol/L (3.5-4.5)
[2024-02-09] MEDS ORDERED: iohexoL-300 100 ML VIAL ONE (13:16)
[2024-02-09 13:26] LABS: BAND NEUTROPHILS % (MANUAL) 2 %; DIFFERENTIAL COMMENT MANUAL DIFFERENTIAL; EOSINOPHILS # (MANUAL) 0.1 10^3/uL (0-0.7); LYMPHOCYTES # (MANUAL) 1.3 10^3/uL (1.5-3.5); LYMPHOCYTES % (MANUAL) 11 %; MONOCYTES # (MANUAL) 1.3 10^3/uL (0.0-1.0); NEUTROPHILS # (MANUAL) 9.2 10^3/uL (1.5-6.6); PLATELET ESTIMATE, MANUAL NORMAL (130-450,000) (NORMAL); PLATELET MORPHOLOGY NORMAL APPEARANCE (NORMAL); RBC MORPHOLOGY (MULTIPLE) NORMAL APPEARANCE (NORMAL)
[2024-02-09] MEDS: iohexoL-300 100 ML VIAL IVP ONE (14:05)
--- NOTE | 2024-02-09 14:46 | CT Report ---
PROCEDURE: Pelvis W INDICATIONS: hip/buttock inj CONTRAST: Omni 300 100ml TECHNIQUE: After the administration of intravenous contrast, a CT scan of the pelvis was performed. Images were recorded and evaluated at appropriate window settings. Reformats: axial MIP of the chest, coronal an d sagittal. For radiation dose reduction, the following was used: automated exposure control, adjustm ent of mA and/or kV according to patient size. COMPARISON: 05/15/2020 FINDINGS: Image quality: Mild motion artifact Lower abdomen: No evidence of small bowel obstruction. No pathologic ascites in the lower abdomen. Bladder: Unremarkable Reproductive organs: Enlarged prostate, with heterogeneous enhancement, not well assessed on this zuleyma dy, consider PSA correlation if needed Rectum: No significant inflammatory changes were perirectal drainable fluid collection Vessels and lymph nodes: No aneurysmal vessel or pathologic lymph nodes identified. Pelvic wall: Fat-containing right greater left inguinal hernias. Mild edema in the subcutaneous tissu es behind the lumbar spine and sacrum. No drainable fluid collection. Mild edema also seen in the glu teal folds. Small hydroceles Bones: No acute or suspicious osseous finding. No displaced fracture is seen. IMPRESSION: Mild scattered edema in the region of the gluteal folds and tissues behind the sacrum and lower lumba r spine. No drainable fluid collection. If there is high concern for further derangement, consider MR I evaluation, preferably with a BB marker focused at the area of highest concern. Reviewed by: Everton Osman MD on 02/09/2024 2:44 PM PDT Approved by: Everton Osman MD on 02/09/2024 2:44 PM PDT Station ID: [id number]
[2024-02-09 15:49] VITALS: BP 150/88; O2SAT 96
== END 2024-02-09 15:25 | disposition home or self-care (01) ==
LOC: ED 11:45
DX: S30.0XXA Contusion of lower back and pelvis, initial encounter (principal); W19.XXXA Unspecified fall, initial encounter; I69.354 Hemiplegia and hemiparesis following cerebral infarction affecting left non-dominant side
CPT/HCPCS: 36415; 72193; 80048; 85025; 99283; 99284; Q9967

== ENCOUNTER 2024-02-23 12:49 | Outpatient (CLI) | payer MEDICARE, OTHER ==
--- NOTE | 2024-02-23 23:22 | MRI Report ---
PROCEDURE: Pelvis WO INDICATIONS: L LEF PAIN, L THIGN PAIN TECHNIQUE: Noncontrast coronal T1 spin echo and STIR through the bony pelvis. Sagittal T2 FSE with fat saturati on, oblique axial PD FSE and T2 FSE with fat saturation through the symphysis pubis. COMPARISON: CT of pelvis dated 02/09/2024 left femoral radiograph dated 02/05/2024.. FINDINGS: Image quality: Excellent. Bones and joints: Extensive marrow edema involving left sacral delroy extending to anterior cortex just medial to the left sacroiliac joint is seen suggestive of nondisplaced fractures/insufficiency fract ure. There is also extensive marrow edema involving left superior pubic ramus with minimally displace d fracture involving lateral aspect of superior pubic ramus extending to involve anterior and medial wall of left acetabulum. Nondisplaced fracture involving mid shaft of left inferior pubic ramus is al so seen with extensive marrow edema. No other area of marrow edema. 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 No evidence of avascular ne crosis of femoral head. Degenerative disc disease in visualized lower lumbar spine is seen. No gross aggressive appearing bony lesion is identified. Soft tissues: Significant edema involving left pelvic floor muscles particularly involving left Dr. M agnevist and obturator externus muscles suggestive of muscle strain/partial thickness tear. No other muscle or tendon signal abnormality is seen. Large [id number] of bilateral hip joints shows no obv ious focal labral tear. There is no pelvic free fluid. Enlarged prostate gland with significant mass effect on floor of urinary bladder is noted. No gross bladder wall abnormalities. No gross pelvic lym phadenopathy. IMPRESSION: 1. Nondisplaced fractures involving lateral aspect of left superior pubic ramus with extensive marrow edema extending to involve medial wall and anterior wall of left acetabulum. Nondisplaced fracture a lso seen involving mid shaft of left inferior pubic ramus. 2. Likely insufficiency fracture involving left sacral delroy extending to anterior cortex just medial to left sacroiliac joint. 3. No other fracture or dislocation. No evidence of avascular necrosis of femoral head. Osteoarthriti c changes throughout bony pelvis. Degenerative disc disease in visualized lower lumbar spine. 4. Likely muscle strain involving left pelvic floor muscles. No other muscle or tendon signal abnorma lities. 5. Enlarged prostate with mass effect on floor of urinary bladder. No pelvic free fluid. Reviewed by: Conner Snyder MD on 02/23/2024 11:20 PM PDT Approved by: Conner Snyder MD on 02/23/2024 11:20 PM PDT Station ID: [id number]
== END 2024-02-23 12:50 | disposition home or self-care (01) ==
LOC: DI 12:49
PROVIDERS: ATTEND Family Medicine
DX: S32.512A Fracture of superior rim of left pubis, initial encounter for closed fracture (principal); S32.592A Other specified fracture of left pubis, initial encounter for closed fracture; N40.0 Benign prostatic hyperplasia without lower urinary tract symptoms

== ENCOUNTER 2024-05-07 07:42 | Outpatient (CLI) | payer MEDICARE, OTHER | END 2024-05-07 23:59 | disposition critical access hospital (66) | LOC: EMS 07:42 | DX: R55 Syncope and collapse (principal); R42 Dizziness and giddiness | CPT/HCPCS: A0425; A0429 ==

== ENCOUNTER 2024-05-07 08:00 | Emergency (ER) | payer MEDICARE, OTHER ==
--- NOTE | 2024-05-07 08:04 | ED Physician Documentation ---
PD HPI Fall - Stated complaint Stated Complaint: GEN WEAKNESS - History obtained from History obtained from: Patient, EMS - Additional information Additional information: 74-year-old gentleman with history of stroke, hypertension, subdural hemorrhage got out of bed this morning to go to the bathroom and felt sudden onset of dizziness and got presyncopal with a fall. He did not lose consciousness. He describes the dizziness as the world spinning around him. It lasted about 20 minutes, during which she could not walk. He does not feel dizzy now. There is a mild headache with it. He does not feel like there is any new neurologic symptoms. He has chronic left-sided deficits from his stroke. At baseline walks with a limp. Per EMS prehospital orthostatic vital signs were negative, blood sugar was think 108 and EKG was unremarkable. PD PAST MEDICAL HISTORY - Past Medical History Cardiovascular: Hypertension, High cholesterol Respiratory: None Neuro: CVA, Head injury Endocrine/Autoimmune: None GI: GERD : Benign prostate hypertrophy HEENT: None, Other Psych: None Musculoskeletal: None Derm: None - Past Surgical History Past Surgical History: Yes Ortho: Knee replacement Neuro: Craniotomy HEENT: Tonsil/Adenoidectomy - Present Medications Home Medications: Ambulatory Orders Medication Instructions Recorded Confirmed Diclofenac Sodium Dr [Voltaren] 75 mg PO BIDWM 02/09/24 02/09/24 Gabapentin [Neurontin] 1 - 2 tab PO TID #60 cap 02/09/24 Gabapentin [Neurontin] 600 mg PO HS 02/09/24 02/09/24 Lisinopril [Zestril] 40 mg ORAL DAILY 02/09/24 02/09/24 Rosuvastatin Calcium 10 mg PO DAILY 02/09/24 02/09/24 Tizanidine HCl 2 mg PO Q8HR PRN 02/09/24 02/09/24 - Allergies Allergies/Adverse Reactions: Allergies Allergy/AdvReac Type Severity Reaction Status Date / Time No Known Drug Allergies Allergy Verified 05/07/24 08:06 - Social History Does the pt smoke?: No Smoking Status: Never smoker Does the pt drink ETOH?: Yes Does the pt have substance abuse?: No - Immunizations Immunizations are current?: Yes - POLST Patient has POLST: No PD ED PE NORMAL - Vitals Vital signs reviewed: Yes - General General: Alert and oriented X 3, No acute distress - HEENT HEENT: PERRL, EOMI, Other (Left facial droop) - Neck Neck: Supple, no meningeal sign, No bony TTP - Cardiac Cardiac: RRR, No murmur - Respiratory Respiratory: No respiratory distress, Clear bilaterally - Abdomen Abdomen: Soft, Non tender - Back Back: No CVA TTP, No spinal TTP - Derm Derm: Normal color, Warm and dry - Neuro Neuro: Alert and oriented X 3, bander and cellophaner helper machine 2-12 intact, Normal speech, Other (Drift with some contractures and atrophy in the left upper extremity and also decree strength in the left lower extremity. None of which he feels are any different than his usual.) Eye Opening: Spontaneous Motor: Obeys Commands Verbal: Oriented GCS Score: 15 Results - Vitals Vitals: Vital Signs - 24 hr 05/07/24 05/07/24 08:06 09:15 Temperature 36.4 C L Heart Rate 71 62 Respiratory 17 15 Rate Blood Pressure 145/96 H 136/91 H O2 Saturation 95 94 Oxygen O2 Source Room air - EKG (time done) 0802 EKG releavant findings:: EKG personally interpreted by author of this note. Relevant findings are: Rate: Rate (enter#) (70) Rhythm: NSR [place]: LAD Intervals: Normal [place] QRS: Normal Ischemia: Normal ST segments - Labs Labs: Laboratory Tests 05/07/24 05/07/24 09:11 09:11 WBC 10.3 RBC 4.41 L Hgb 13.7 L Hct 41.6 L MCV 94.3 H MCH 31.1 H MCHC 32.9 RDW 14.7 Plt Count 224 MPV 11.3 Neut # (Auto) 8.2 H Lymph # (Auto) 0.8 L [place] # (Auto) 1.0 Eos # (Auto) 0.2 Baso # (Auto) 0.0 Absolute Nucleated RBC 0.00 Nucleated RBC % 0.0 Sodium 137 Potassium 4.1 Chloride 106 Carbon Dioxide 26 Anion Gap 5.0 L BUN 15 Creatinine 0.9 Estimated GFR (MDRD) 82 L Glucose 103 Calcium 9.4 Total Bilirubin 0.6 AST 15 ALT 13 Alkaline Phosphatase 85 Total Protein 6.3 L Albumin 3.8 Globulin 2.5 Albumin/Globulin Ratio 1.5 - Rads (name of study) CT scanning of the head demonstrates 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 On examination here he is at his neurologic baseline which does include significant left-sided deficits from prior stroke. Workup demonstrates a head CT without acute changes, mild anemia on CBC and generally unremarkable CMP. After diagnostic studies were completed at 9:40 AM we got him up and he was able to walk at his baseline with a cane with significant limp but no dizziness. Departure - Departure Disposition: 01 Home, Self Care Clinical Impression: Vertigo Record reviewed to determine appropriate education?: Yes Instructions: ED Vertigo Unspecified Comments: Sounds like today you had an episode of what we call peripheral vertigo which is usually due to an inner ear problem. Thankfully it usually goes away as yours did. It can become a recurrent issue, call your doctor to arrange a follow-up appointment, make the next available appointment. In the interim, return anytime if worse or if new symptoms develop.
--- NOTE | 2024-05-07 08:53 | CT Report ---
PROCEDURE: Head WO INDICATIONS: vertigo TECHNIQUE: Noncontrast 4.5 mm thick angled axial sections acquired from the foramen magnum to the vertex. For r adiation dose reduction, the following was used: automated exposure control, adjustment of mA and/or kV according to patient size. COMPARISON: 04/08/2017 FINDINGS: Image quality: Excellent. CSF spaces: Basal cisterns are patent. No extra-axial fluid collections. The ventricles are symmet miguelito in size and shape. Brain: No intracranial bleeds or masses. 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 There is cerebral volume loss for age, with result ant ventricular and sulcal prominence. There are periventricular and deep white matter chronic small vessel ischemic changes. There is intracranial internal carotid artery atherosclerosis. Skull and face: [place] hole in left parietal calvarium. Calvarium and visualized facial bones appear i ntact, without suspicious lesions. Sinuses: Visualized sinuses and mastoids are clear. IMPRESSION: 1. No acute intracranial pathology. 2. 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 Reviewed by: Conner Daniel MD on 05/07/2024 8:52 AM PDT Approved by: Conner Daniel MD on 05/07/2024 8:52 AM PDT Station ID: [id number]
[2024-05-07 09:19] VITALS: O2SAT 94
[2024-05-07 09:29] LABS: BASOPHILS % (AUTO) 0.4 %; EOSINOPHILS # (AUTO) 0.2 10^3/uL (0.0-0.7); EOSINOPHILS % (AUTO) 1.5 %; HCT - HEMATOCRIT 41.6 % (42.0-52.0); HGB - HEMOGLOBIN 13.7 g/dL (14.0-18.0); LYMPHOCYTES # (AUTO) 0.8 10^3/uL (1.5-3.5); MEAN CORPUSCULAR HEMOGLOBIN 31.1 pg (27.0-31.0); MEAN CORPUSCULAR HGB CONC 32.9 g/dL (32.0-36.0); MEAN CORPUSCULAR VOLUME 94.3 fL (80.0-94.0); MEAN PLATELET VOLUME 11.3 fL (7.4-11.4); MONOCYTES % (AUTO) 10.1 %; NEUTROPHILS # (AUTO) 8.2 10^3/uL (1.5-6.6); NEUTROPHILS % (AUTO) 79.6 %; PLT - PLATELET COUNT 224 10^3/uL (130-450); RED BLOOD COUNT 4.41 10^6/uL (4.70-6.10); RED CELL DISTRIBUTION WIDTH 14.7 % (12.0-15.0); WHITE BLOOD COUNT 10.3 x10^3/uL (4.8-10.8)
[2024-05-07 09:35] LABS: ALBUMIN 3.8 g/dL (3.2-5.5); ALBUMIN/GLOBULIN RATIO 1.5 (1.0-2.2); BILIRUBIN,TOTAL 0.6 mg/dL (0.2-1.0); CALCIUM 9.4 mg/dL (8.5-10.3); CREATININE 0.9 mg/dL (0.6-1.3); POTASSIUM 4.1 mmol/L (3.5-4.5); TOTAL PROTEIN 6.3 g/dL (6.4-8.9)
[2024-05-07 10:00] VITALS: BP 152/90
== END 2024-05-07 09:50 | disposition home or self-care (01) ==
LOC: EDUNIT# → ED 08:00
DX: R42 Dizziness and giddiness (principal)
CPT/HCPCS: 36415; 80053; 85025; 93005; 99283; 99284